=== PATIENT | female | born 1960 | race Caucasian/White ===

== ENCOUNTER 2017-01-22 10:51 | Outpatient (CLI) | payer OTHER ==
--- NOTE | 2017-01-22 13:42 | RAD ---
LUMBAR SPINE 2 VIEWS: HISTORY: Spondylosis of lumbar region without myelopathy. Surgery 01/08. Continued back pain that radiates d own to the leg. COMPARISON: CT 07/13/16. FINDINGS: Battery pack over the left lower quadrant of the abdomen with leads extending to the spine are seen. Multiple midline skin tomas. Right posterior unilateral fusion is present at L3-4 without hardw are complication. Anterior screws are present at L3-4, L4-5, and L5-S1. POS: OFF
== END 2017-01-22 10:52 | disposition home or self-care (01) ==
LOC: TBSIIMAG 10:51
PROVIDERS: ATTEND Physician Assistant
DX: M47.816 Spondylosis without myelopathy or radiculopathy, lumbar region (principal); Z98.1 Arthrodesis status
CPT/HCPCS: 72100

== ENCOUNTER 2017-03-05 15:37 | Outpatient (CLI) | payer OTHER ==
--- NOTE | 2017-03-05 17:24 | RAD ---
TWO VIEWS OF THE LUMBAR SPINE 03/05/17 COMPARISON: 01/22/17 HISTORY: Evaluate lumbar spine followup surgery. FINDINGS: Dorsal column stimulators overlie the lower thoracic spine. Postsurgical clips are present in the rig ht upper quadrant. Unilateral right sided L3 and L4 pedicle screws are present with a vertically orie nted interlocking mariam, stable. Bilateral laminectomy changes are noted at L3, L4, and L5. Ventricle f ixation screws overlie L5 and S1, stable. there is no anterolisthesis or retrolisthesis. IMPRESSION: Extensive postoperative change, stable. No acute osseous abnormality. POS: [facility]
== END 2017-03-05 15:38 | disposition home or self-care (01) ==
LOC: TBSIIMAG 15:37
PROVIDERS: ATTEND Neurological Surgery
DX: M51.36 Other intervertebral disc degeneration, lumbar region (principal); Z98.890 Other specified postprocedural states
CPT/HCPCS: 72100

== ENCOUNTER 2019-05-08 13:32 | Emergency (ER) | payer OTHER ==
[2019-05-08 15:03] LABS: #Eosinphils 0.3 thou/uL (0.0-0.7); #Lymphocytes 2.9 thou/uL (1.20-3.40); #Monocytes 0.5 thou/uL (0.11-0.59); #Neutrophils 4.9 thou/uL (1.40-6.50); %Basophils 0.3 % (0.0-1.0); %Eosinophils 3.6 % (0.0-10.0); %Lymphocytes 33.5 % (21.0-51.0); %Monocytes 6.2 % (0.0-10.0); %Neutrophils 56.4 % (42.0-75.0); Hemoglobin 12.2 g/dL (12.0-16.0); Mean Corpuscular HGB CONC 33.6 g/dL (32.0-36.0); Mean Corpuscular Hemoglobin 32.7 pg (27.0-31.0); Mean Corpuscular Volume 97.4 fL (78.0-98.0); Mean Platelet Volume 7.1 fL (7.4-10.4); Platelet Count 255 thou/uL (130-400); RBC Distribution Width 12.5 % (11.5-14.5); Red Blood Cell (RBC) Count 3.73 mill/uL (4.20-5.40); White Blood Cell (WBC) Count 8.6 thou/uL (4.8-10.8)
[2019-05-08 15:20] LABS: Anion Gap 9 mmol/L (10-20); BUN (Urea Nitrogen) 8 mg/dL (9.8-20.1); Calc. Creatinine Clearance 0 mL/min (70-130); Calcium 8.4 mg/dL (7.8-10.44); Carbon Dioxide 23 mmol/L (22-29); Chloride 111 mmol/L (98-107); Estimated GFR-MDRD 75; Glucose 86 mg/dL (70-105); Sodium 139 mmol/L (136-145)
== END 2019-05-08 15:37 | disposition home or self-care (01) ==
LOC: ERS 13:32
DX: R04.2 Hemoptysis (principal); E78.5 Hyperlipidemia, unspecified; E78.00 Pure hypercholesterolemia, unspecified; I10 Essential (primary) hypertension; F32.9 Major depressive disorder, single episode, unspecified; F17.210 Nicotine dependence, cigarettes, uncomplicated; Z79.899 Other long term (current) drug therapy
CPT/HCPCS: 36415; 80048; 85025; 99284

== ENCOUNTER 2019-05-19 10:18 | Outpatient (CLI) | payer OTHER ==
--- NOTE | 2019-05-19 10:30 | RAD ---
EXAM: Two views chest PROVIDED CLINICAL HISTORY: Dyspnea COMPARISON: None FINDINGS: Cardiac silhouette and pulmonary vasculature are within normal limits. Lungs are expanded and clear. Postsurgical changes lower cervical spine and upper lumbar spine are noted. Degenerative changes are seen in the thoracic spine. Dorsal column stimulator leads overlie the mid thoracic spine. IMPRESSION: No acute cardiopulmonary process.
== END 2019-05-19 10:19 | disposition home or self-care (01) ==
LOC: RAD 10:18
PROVIDERS: ATTEND Internal Medicine Critical Care Medicine
DX: R06.00 Dyspnea, unspecified (principal)
CPT/HCPCS: 71046

== ENCOUNTER 2021-06-26 09:10 | Outpatient (CLI) | payer OTHER | END 2021-06-26 09:11 | disposition home or self-care (01) | LOC: RAD 09:10 | PROVIDERS: ATTEND Anesthesiology Pain Medicine | DX: M16.11 Unilateral primary osteoarthritis, right hip (principal) ==